=== PATIENT | female | born 1990 | race Caucasian/White ===

== ENCOUNTER 2019-06-14 16:15 | Emergency (ER) | payer OTHER ==
[~2019-06-14] VITALS: Ht 160 cm; Wt 81.6 kg
[2019-06-14 16:27] VITALS: BP 127/85
--- NOTE | 2019-06-14 16:27 | NUR ---
SEEN AND EXAMINED BY DANILO DURANT
--- NOTE | 2019-06-14 16:31 | NUR ---
URINE SPECIMEN COLLECTED AND SENT TO LAB.
[2019-06-14 16:44] LABS: APPEARANCE,URINE Clear (CLEAR); BILIRUBIN,URINE SMALL (NEGATIVE); BLOOD, URINE Moderate Ery/uL (NEGATIVE); COLOR,URINE Orange (YELLOW); KETONES,URINE Trace (NEGATIVE); LEUKOCYTE ESTERASE ,URINE Large (NEGATIVE); NITRITE, URINE Positive (NEGATIVE); PROTEIN,URINE 100 mg/dl (NEGATIVE); UGLUCOSE 100 MG/DL mg/dL (NEGATIVE)
[2019-06-14] MEDS ORDERED: PHENAZOPYRIDINE HCL 200 MG TABLET PO ONE (17:00)
--- NOTE | 2019-06-14 17:00 | NUR ---
PELVIC EXAM DONE BY DANILO FLOWER.
[2019-06-14] MEDS ORDERED: PHENAZOPYRIDINE HCL 200 MG TABLET ONE (17:03)
[2019-06-14 17:04] LABS: BACTERIA,URINE Few /HPF (None Seen); SQUAMOUS EPITHELIAL CELL,UR Few /HPF (None Seen); URINE AMORPHOUS URATE Few /HPF (None Seen)
[2019-06-14] MEDS ORDERED: AZITHROMYCIN 250 MG TABLET ONE (18:11)
[2019-06-14] MEDS ORDERED: CEFTRIAXONE 1 G VIAL ONE (18:11)
[2019-06-14] MEDS ORDERED: LIDOCAINE /MPF 1% VIAL 5 ML VIAL ONE (18:12)
--- NOTE | 2019-06-14 18:22 | NUR ---
Patient discharged to home in stable condition. Written and verbal after care instructions given. Patient verbalizes understanding of instruction.
[2019-06-14] MEDS ORDERED: CEFTRIAXONE 1 G VIAL IM ONE (18:30)
[2019-06-14] MEDS ORDERED: AZITHROMYCIN 250 MG TABLET PO ONE (18:30)
== END 2019-06-14 18:22 | disposition home or self-care (01) ==
LOC: ER 16:20
DX: N39.0 Urinary tract infection, site not specified (principal)
CPT/HCPCS: 81001; 84703; 87086; 87210; 87491; 87591; 96372; 99283; A6403 ×2; J0696; J3490; 81000-TC